=== PATIENT | female | born 1935 | race Caucasian/White ===

== ENCOUNTER 2024-04-20 09:05 | Emergency (ER) | payer MEDICARE, SELFPAY ==
[2024-04-20 09:12] VITALS: BP 140/80; PULSE 88; RESP 16; TEMP 36.8; O2SAT 97
--- NOTE | 2024-04-20 09:21 | ED.SKABFB ---
HPI - Skin/Abscess/Foreign Bdy General Chief complaint: Skin/Abscess/Foreign Body Stated complaint: Ticks Time Seen by Provider: 04/20/24 09:15 Source: patient Mode of arrival: ambulatory Limitations: no limitations History of Present Illness HPI narrative: Mana is an 88-year-old female patient presenting to the clinic today with complaints of tick bites to her left hip and right buttocks. She states that the tick bite to her left hip occurred 1 week ago and the tick was removed but she is not aware of how long the tick was in place. Does have a red swollen area with a lump to that area that is mildly tender to palpation. Reports that she had a tick removed from her right buttocks yesterday. States that this area is not painful. [place] Has not been doing any gardening or being outside for extensive long period of time. Denies any fever, chills, body aches, joint pain, or any other concerning symptoms. Related Data Home Medications Medication Instructions Recorded Confirmed cholecalciferol (vitamin D3) 50 50 mcg PO DAILY 06/15/22 mcg (2,000 unit) capsule estradiol 0.5 mg tablet 0.5 mg PO DAILY 06/15/22 ferrous sulfate 325 mg (65 mg 325 mg PO DAILY 06/15/22 iron) tablet mecobalamin (vitamin B12) 1,000 1,000 mcg PO DAILY 06/15/22 mcg chewable tablet multivitamin (Daily Multi-Vitamin 1 tablet PO DAILY 06/15/22 tablet) Allergies Allergy/AdvReac Type Severity Reaction Status Date / Time wheat AdvReac Intermediate Unknown Verified 06/15/22 13:50 Review of Systems Review of Systems: Pertinent positives per HPI. Patient denies any fever, chills, rash, headache, visual changes, dizziness, cough, runny nose, sore throat, shortness of breath, chest pain, palpitations, nausea, vomiting, diarrhea, constipation, abdominal pain, or any urinary issues. [facility] Surgical History Surgical History H/O colonoscopy 2017 H/O: hysterectomy History of back surgery Family History Family History Mother Diabetes mellitus Family history of cardiovascular disease Grandparent Diabetes mellitus Malignant neoplasm of prostate Father Carcinoma of colon Sibling Carcinoma of colon Family history of malignant neoplasm of cervix Social History Social History Smoking status: Never smoker Alcohol intake: never Substance use: never Living arrangements: alone Occupation/Education: retired Agree to blood products: Yes Comments At the time of my signature, I reviewed and agree with the nursing past medical, surgical, social, and family history. There is no relevant family history pertinent to the patient complaint. Exam Narrative: General: Well-developed, well nourished, in no apparent distress Head: Normocephalic, atraumatic. Cardio: Regular rate and rhythm, s1 and s2 normal, no murmur appreciated. Resp: Clear to auscultation bilaterally, no rhonchi, rales, wheezing or rubs. Integumentary: [place], warm, and dry, red, raised, knotted area measuring 0.5 x 1 cm to the left lateral hip, small area red and raised with open center without any retained foreign body to the right buttocks, nontender to palpation with very slight induration. Course Course Emergency Course: Portions of this record may have been created with voice recognition software. Level of Care: Express Care Visit Vital Signs Vital signs: Vital Signs Temperature 36.8 C 04/20/24 09:12 Pulse Rate 88 04/20/24 09:12 Respiratory Rate 16 04/20/24 09:12 Blood Pressure 140/80 04/20/24 09:12 Pulse Oximetry 97 04/20/24 09:12 Temperature 36.8 C 04/20/24 09:12 Pulse Rate 88 04/20/24 09:12 Respiratory Rate 16 04/20/24 09:12 Blood Pressure 140/80 04/20/24 09:12 Pulse Oximetry 97 04/20/24 09:12 Vit
== END 2024-04-20 09:32 | disposition home or self-care (01) ==
PROVIDERS: Emergency Provider Nurse Practitioner Family
DX: S30.860A Insect bite (nonvenomous) of lower back and pelvis, initial encounter (principal); W57.XXXA Bitten or stung by nonvenomous insect and other nonvenomous arthropods, initial encounter
CPT/HCPCS: 99213; G0463

== ENCOUNTER 2025-04-18 11:26 | Emergency (ER) | payer MEDICARE, SELFPAY ==
[2025-04-18 11:38] VITALS: BP 130/68; PULSE 91; RESP 18; TEMP 36.6; O2SAT 100
--- NOTE | 2025-04-18 11:38 | ED_ITS ---
HPI - Ear Problem General Chief complaint: Ear Stated complaint: EARS CLOGGED Time Seen by Provider: 04/18/25 12:05 Source: patient and RN notes reviewed Mode of arrival: ambulatory Limitations: no limitations History of Present Illness HPI Narrative: 89-year-old female presents concern for decreased hearing for 1 week. Reports she thinks her ears are clogged with wax. She has used [place] ox without relief. Denies pain. Denies cold symptoms. MD Complaint: decreased hearing Related Data Home Medications ?Medication ?Instructions ?Recorded ?Confirmed ?Last Taken ?Type cholecalciferol (vitamin D3) 50 50 mcg PO DAILY 06/15/22 04/18/25 Unknown History mcg (2,000 unit) capsule multivitamin (Daily Multi-Vitamin 1 tablet PO DAILY 06/15/22 04/18/25 Unknown History tablet) amlodipine 2.5 mg tablet 2.5 mg PO DAILY 04/18/25 04/18/25 Unknown History Allergies Allergy/AdvReac Type Severity Reaction Status Date / Time wheat AdvReac Intermediate Unknown Verified 04/18/25 11:34 Review of Systems Review of Systems: CONSTITUTIONAL: Denies malaise, chills, sweats, or fever. EYES: Denies visual changes, redness, or discharge. ENT: Denies rhinorrhea, congestion, sinus pain, and sore throat. Reports bilateral decreased hearing CARDIOVASCULAR: Denies chest pain, palpitations, or edema. RESPIRATORY: Denies cough. Denies dyspnea. GASTROINTESTINAL: Denies abdominal pain, nausea, vomiting, diarrhea SKIN: Denies rash or itching. MUSCULOSKELETAL: Denies myalgia. NEUROLOGIC: Denies headache. All systems reviewed & are unremarkable except as noted in HPI and below PMFSH Surgical History Surgical History H/O colonoscopy 2017 H/O: hysterectomy History of back surgery Family History Family History Mother Diabetes mellitus Family history of cardiovascular disease Grandparent Diabetes mellitus Malignant neoplasm of prostate Father Carcinoma of colon Sibling Carcinoma of colon Family history of malignant neoplasm of cervix Social History Social History Smoking status: Never smoker Alcohol intake: never Substance use: never Living arrangements: alone Occupation/Education: retired Agree to blood products: Yes Comments At time of signature, agree with nursing past medical, surgical, social and family history. There is no relevant family history pertinent to the presenting complaint Exam Narrative: GENERAL: Well-appearing, well-nourished, and in no acute distress. HEAD: Normocephalic EYES: PERRLA, conjunctivae clear ENT: Nares clear. Mucous membranes moist. TM pearly garcia with dull light reflex bilaterally; no tragal tenderness. Oropharynx not erythematous without lesions. Tonsils not enlarged and without exudate, no drooling, no hoarseness, no trismus, uvula midline. NECK: Supple. No lymphadenopathy CHEST: Clear to auscultation, breath sounds equal. No wheezing, rhonchi, rales, or stridor. No respiratory distress, speaks in full sentences. HEART: Regular rate and rhythm. No murmur heard. SKIN: Warm, dry, no rash. NEURO: Alert and oriented x3. PSYCH: Normal mood and affect Course Course Emergency Course: Patient is aware of diagnosis, understands and agrees to treatment plan. Anticipatory guidance given. Patient agrees to follow-up as directed and is aware of reasons to seek care at the emergency department. Portions of this record may have been created with voice recognition software Level of Care: Express Care Visit Vital Signs Vital signs: Reviewed. Procedures Ear Wax Removal Both Ears: Ear Wax Removal Date: 04/18/25 Ear Wax Removal Time: 12:10 Cerumenolytic Used: 5-10% Sodium Bicarb solution Results: Re-examined: cerumen removed completely TM Examination: TM(s) intact, normal appearance Ear Canal Exam: atraumatic Patient Tolerated Procedure: well Complications: no problems Technique: ear canal irrigated and ear canal curetted Medical Decision Making MDM Narrative Medical decision making narrative: I evaluated this in the express care. History is obtained from patient who is an independent historian and physical exam was performed.? Available medical records were reviewed. ? Exam findings and relevant testing show no acute concerns or changes; patient is non-toxic appearing and is in no distress. Differential diagnosis considered: Stubbs virus, strep pharyngitis, allergic rhinitis, upper respiratory tract infection, sinusitis, rhinosinusitis, nasopharyngitis. viral pharyngitis, otitis media, otitis externa, otitis effusion, cerumen impaction, foreign body. Exam findings show no acute concerns or changes; patient is non-toxic appearing and is in no distress. Patient is appropriate for outpatient treatment and follow-up. ? Differential diagnosis and treatment plan were discussed with the patient. Patient agrees with discussion and after shared medical decision making agrees with plan of care. All questions were answered to the patient's satisfaction. Patient is appropriate for outpatient treatment and follow-up. Critical Care Time Critical Care Time Critical Care Time: No Discharge Plan Discharge Clinical Impression: Decreased hearing of both ears, Excessive cerumen in both ear canals Patient Disposition: Home Condition: Stable Instructions: General Patient Instructions Additional Instructions: 1) Please follow-up with your primary care doctor for any new concerns. 2) If you have any urgent concerns please go to the ER. 3) Please continue taking your home medications as usual. Patient Language: [place] Prescriptions: No Action amlodipine 2.5 mg tablet 2.5 mg PO DAILY multivitamin [Daily Multi-Vitamin] Tablet 1 tablet PO DAILY cholecalciferol (vitamin D3) 50 mcg (2,000 unit) capsule 50 mcg PO DAILY Follow-up/Referrals: Mahesh,MD Belén [Primary Care Provider] - Time of Disposition: 12:19
== END 2025-04-18 12:22 | disposition home or self-care (01) ==
PROVIDERS: Emergency Provider Nurse Practitioner; PCP Family Medicine
DX: H61.23 Impacted cerumen, bilateral (principal)
CPT/HCPCS: 69210; 99212; G0463